=== PATIENT | female | born 1970 | race Caucasian/White ===

== ENCOUNTER 2017-01-11 00:16 | Emergency (ER) | payer BC ==
[~2017-01-11] VITALS: Ht 157.5 cm; Wt 122.5 kg
[~2017-01-11 00:16] MED LIST: HCTZ12.5T PO; ONDA-42 SL; OSLT75CRX PO; PRM25T PO
--- OUTSIDE RECORDS SUMMARY | 2017-01-11 00:21 | XMS REPORT ---
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 Info Not Available Non Drug Allergy Problems Problem Type Condition Code Onset Dates Condition Status Assessment Dental caries K02.9 Active Problem Unspecified essential hypertension 401.9 Active Medications Medication Code System Code Instructions Start Date End Date Status Dosage Hydrochlorothiazide [facility] [address]-09 25 mg Mar 21, 2013 1 tablet by Oral route 1 time per day Procedures Procedure Coding System Code Date EXTRAC ERUPTED TOOTH/EXPOSED ROOT CPT-4 D7140 Oct 22, 2015 Vital Signs Date/Time: Oct 22, 2015 Blood Pressure Diastolic 94 mmHg Blood Pressure Systolic 142 mmHg Results No Known Results Summary Purpose eClinicalWorks Submission
--- OUTSIDE RECORDS SUMMARY | 2017-01-11 00:22 | XMS REPORT ---
Author Author AILYN GONZALES eClinicalWorks Address Unknown Phone Unavailable Care Team Providers Care Orthotic/Prosthetic Clinician Name Role Phone AILYN GONZALES CP Unavailable Allergies, Adverse Reactions, Alerts Substance Reaction Event Type N.K.D.A. Info Not Available Non Drug Allergy Problems Problem Type Condition Code Onset Dates Condition Status Assessment Dental examination Z01.20 Active Problem Unspecified essential hypertension 401.9 Active Medications Medication Code System Code Instructions Start Date End Date Status Dosage Amoxicillin [facility] [address]-76 500 MG Orally every 8 hrs 1 tablet Procedures Procedure Coding System Code Date INTRAORL-PERIAPICAL 1 FILM 82869 CPT-4 D0220 October 02, 2015 LTD ORAL EVALUATION - PROBLEM FOCUS CPT-4 D0140 October 02, 2015 Vital Signs Date/Time: October 02, 2015 Blood Pressure Diastolic 95 mmHg Blood Pressure Systolic 159 mmHg Height 62 in Results No Known Results Summary Purpose eClinicalWorks Submission
--- OUTSIDE RECORDS SUMMARY | 2017-01-11 00:22 | XMS REPORT | Continuity of Care Document ---
Author Author [facility] [place] [facility] Address Unknown Phone Unavailable Allergies Active Description Code Type Severity Reaction Onset Reported/Identified Relationship to Patient Clinical Status Yes No Known Drug Allergies [id number] Drug Allergy Unknown N/ A 2011 Medications Problems Date Dx Coded Attending Type Code Diagnosis Diagnosed By 09/25/2012 SULMA AGUILAR DDS 401.9 UNSPECIFIED ESSENTIAL HYPERTENSION 08/18/2015 CECI MOSQUEDA DO Ot M79.89 OTHER SPECIFIED SOFT TISSUE DISORDERS 08/28/2015 CECI MOSQUEDA DO Ot M79.89 OTHER SPECIFIED SOFT TISSUE DISORDERS 09/15/2015 CECI MOSQUEDA DO Ot M79.89 OTHER SPECIFIED SOFT TISSUE DISORDERS 01/26/2016 CECI MOSQUEDA DO Ot N63 UNSPECIFIED LUMP IN BREAST 02/03/2016 CECI MOSQUEDA DO Ot N63 UNSPECIFIED LUMP IN BREAST Procedures Results Encounters ACCT No. Visit Date/Time Discharge Status Pt. Type Provider Facility Loc./Unit Complaint [id number] 10/30/2012 09:43:00 10/30/2012 23: 59:59 CLS Outpatient SULMA AGUILAR DDS [id number] 01/22/2016 07:25:00 2015 23:59:59 CLS Outpatient CECI MOSQUEDA DO [facility] RT BREAST LUMP [id number] 08/14/2015 12:34:00 2015 23:59:59 CLS Outpatient CECI MOSQUEDA DO [facility] [id number] 03/23/2013 19:19:00 2013 21:05:00 DIS Emergency
[2017-01-11] MEDS ORDERED: FURO20TA4 (00:29)
[2017-01-11] MEDS ORDERED: LISI10TA2 (00:29)
[2017-01-11] MEDS ORDERED: hydrOXYzine (VISTARIL) 25 MG CAP PO ONE (00:30)
[2017-01-11] MEDS ORDERED: ALPRAZolam 0.25 MG (XANAX) TAB PO ONE (00:30)
--- NOTE | 2017-01-11 00:35 | ED Psychosocial ---
General Chief Complaint: Psych/Social Disorder Stated Complaint: PALPITATIONS,SOB Source: patient, family Exam Limitations: no limitations History of Present Illness Time seen by provider: 00:19 Initial Comments Here with report of shortness of air and palpitations. This is been going on tonight. Her mother approximately 5 hours ago after a yan with cancer. She admits that she is anxious related to that. States that she was short of air when lying down and also felt palpitations. States that she couldn't sleep. Patient is tearful on exam but denies pain or other concerns currently. Timing/Duration: this evening Severity: moderate Associated Symptoms: anxiety, impaired concentration Allergies and Home Medications Allergies Coded Allergies: No Known Drug Allergies (Unverified , 02/01/11) Home Medications Furosemide 20 Mg Tablet, (Reported) Lisinopril 10 Mg Tablet, (Reported) Constitutional: see HPI, No chills, No fever Respiratory: see HPI, No cough, No wheezing Cardiovascular: No chest pain, palpitations Gastrointestinal: No abdominal pain, nausea, No vomiting Genitourinary: no symptoms reported Psychiatric/Neurological: See HPI, Anxiety Past Hittvxl-Pjrtmv-Ihbral Hx Patient Social History Alcohol Use: Denies Use Recreational Drug Use: No Smoking Status: Never a Smoker Recent Foreign Travel: No Contact w/Someone Who Travel: No Surgeries History of Surgeries: Yes Surgeries: Tubal Ligation Respiratory History of Respiratory Disorde: No Cardiovascular History of Cardiac Disorders: Yes Cardiac Disorders: Hypertension Reproductive System Hx Reproductive Disorders: No Sexually Transmitted Disease: No 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 Reviewed Nursing Assessment Reviewed/Agree w Nursing PMH: Yes Family Medical History Significant Family History: Cancer Physical Exam Vital Signs Vital Sign - Last 12Hours 01/11/17 00:29 Temp 98.1 Pulse 101 Resp 13 B/P (MAP) 149/89 Pulse Ox 94 O2 Delivery Room Air Capillary Refill : General Appearance: WD/WN, no apparent distress, obese HEENT: PERRL/EOMI, pharynx normal Neck: full range of motion, supple Respiratory: lungs clear, normal breath sounds Cardiovascular: regular rate, rhythm, no murmur, tachycardia (100-102 on the monitor.) Gastrointestinal: non tender, soft Neurologic/Psychiatric: alert, oriented x 3 Appearance/Memory: appropriate appearance, appropriate insight, neat, other ( tearful when talking about her mother) Behavior/Eye Contact: cooperative, good eye contact, normal speech Thoughts/Hallucinations: normal thought pattern Skin: normal color, warm/dry Progress/Results/Core Measures Results/Orders My Orders Orders - NORMA FRANCOIS MD Alprazolam Tablet (Xanax Tablet) (01/11/17 00:30) Hydroxyzine Oral (Vistaril Capsule) (01/11/17 00:30) Medications Given in ED Current Medications Medications Dose Ordered Sig/Paulo Route Start Time Stop Time Status Last Admin Dose Admin Alprazolam 0.25 mg ONCE ONCE PO 01/11/17 00:30 01/11/17 00:31 DC 01/11/17 00:36 0.25 MG Hydroxyzine Pamoate 25 mg ONCE ONCE PO 01/11/17 00:30 01/11/17 00:31 DC 01/11/17 00:36 25 MG Vital Signs/I&O Vital Sign - Last 12Hours 01/11/17 00:29 Temp 98.1 Pulse 101 Resp 13 B/P (MAP) 149/89 Pulse Ox 94 O2 Delivery Room Air Progress Note : Progress Note Seen and evaluated. I did discuss prevent with the patient. She was appreciative of the understanding. Hydroxyzine 25 mg by mouth and Xanax 0.25 mg by mouth given. We will watch the patient for improvement for a little while in the ER. Heart rate was noted to decrease to the mid 90s with talking to her. Monitor patient. 0100: Patient states she feels much better. Heart rate down to the low 90s. Denies any breathing problems. She does have good family support and her younger brother is a preacher in [place]. She states that she'll be a little talk with her family in the morning. Discharged home with return precautions. Patient verbalize understanding instructions and agreement with plan. Departure Impression Impression: Primary Impression: Bereavement reaction Additional Impression: Anxiety Disposition: 01 HOME, SELF-CARE Condition: Improved Departure-Patient Inst. Decision time for Depature: 01:03 Referrals: CECI MOSQUEDA DO (PCP/Family) Primary Care Physician Patient Instructions: Anxiety, Adult (DC), Dealing With , Adult Add. Discharge Instructions: All discharge instructions reviewed with patient and/or family. Voiced understanding. Follow-up with your in one to 2 days for recheck and further evaluation as needed. Return for any worsening, weakness, breathing problems, chest pain or other concerns as needed. NORMA FRANCOIS MD Jan 11, 2017 00:35
[2017-01-11 01:06] VITALS: BP 134/79
== END 2017-01-11 01:06 | disposition home or self-care (01) ==
LOC: EDUNIT# 00:16 → ER 00:18
DX: F41.9 Anxiety disorder, unspecified (principal); I10 Essential (primary) hypertension; Z98.51 Tubal ligation status
CPT/HCPCS: 93041

== ENCOUNTER → 2017-04-07 | Outpatient (CLI) | payer SELFPAY ==
[~2017-04-07] MED LIST changes: +FURO20TA4; +LISI10TA2
--- NOTE | 2017-04-07 13:00 | Diagnostic Imaging Report ---
PROCEDURE: US right lower extremity venous. TECHNIQUE: Multiple real-time grayscale images were obtained over the right lower extremity in various projections. Additional duplex Doppler and color Doppler images were also obtained. INDICATION: Right leg swelling. FINDINGS: There is no evidence of a right lower extremity DVT. The right lower extremity venous system demonstrates normal compressibility with normal response to augmentation and Valsalva. No soft tissue fluid collections are identified. IMPRESSION: No evidence of right lower extremity DVT. Dictated by: Dictated on workstation # [id number]
== END ==
LOC: RAD 12:12
PROVIDERS: ATTEND Family Medicine
DX: M79.89 Other specified soft tissue disorders (principal)

== ENCOUNTER 2017-09-25 09:50 | Emergency (ER) | payer BC, OTHER ==
[~2017-09-25] VITALS: Ht 157.5 cm; Wt 49.0 kg
[2017-09-25] MEDS ORDERED: TETANUS,DIPTH,PERTUSS P/F (BOOSTRIX) 0.5 ML VIAL IM ONE (10:15)
--- NOTE | 2017-09-25 10:25 | ED Upper Extremity ---
General Chief Complaint: Upper Extremity Stated Complaint: RIGHT RING FINGER INJURY Nursing Triage Note: AMBULATED TO ROOM 10 WITH WHAT SHE SAYS IS AN OPEN FRACTURE TO HER RIGHT RING FINGER. STATES SHE GOT IT CAUGHT IN A DOOR WINDOW. WAS SENT HERE FROM URGENT CARE. Nursing Sepsis Screen: No Definite Risk Source: patient, spouse Exam Limitations: no limitations History of Present Illness Date Seen by Provider: Sep 25, 2017 Time Seen by Provider: 10:14 Initial Comments Patient presents to ER by private conveyance from the urgent care center where she was seen prior to this with a chief complaint she actually rolled her ring finger on her right hand up in the window. It broke the bone according to the urgent care nurse practitioner that was exposed to air so she could not sew it up. She did a ring block on that digit but the patient says is starting to wear off. She's not had anything else for pain. She says she's not had a tetanus shot for over 5 years. Allergies and Home Medications Allergies Coded Allergies: No Known Drug Allergies (Unverified , 02/01/11) Patient Home Medication List Home Medication List Reviewed: Yes Constitutional: No chills, No diaphoresis, No fever, No malaise EENTM: No ear discharge, No ear pain Respiratory: No cough, No short of breath Cardiovascular: No chest pain, No edema Gastrointestinal: No abdominal pain, No constipation, No diarrhea, No nausea Genitourinary: No discharge, No dysuria : No Musculoskeletal: No back pain, No joint pain Skin: No pruritus, No rash Psychiatric/Neurological: Denies Headache, Denies Numbness Past Sqsbhts-Ppymcz-Fcrxgh Hx Patient Social History Alcohol Use: Denies Use Recreational Drug Use: No Smoking Status: Never a Smoker 2nd Hand Smoke Exposure: No Recent Foreign Travel: No Contact w/Someone Who Travel: No Recent Infectious Disease Expo: No Recent Hopitalizations: No Immunizations Up To Date Tetanus Booster (TDap): Unknown Seasonal Allergies Seasonal Allergies: No Past Medical History Surgeries: No Tubal Ligation Respiratory: No Cardiac: Yes Hypertension Neurological: No Reproductive Disorders: No 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 Sexually Transmitted Disease: No Genitourinary: No Gastrointestinal: No Musculoskeletal: No Endocrine: No HEENT: No Cancer: No Psychosocial: No Integumentary: No Blood Disorders: No Family Medical History Cancer Physical Exam Vital Signs Vital Signs - First Documented 09/25/17 09:59 Temp 98.0 Pulse 108 Resp 16 B/P (MAP) 200/108 (138) Pulse Ox 97 O2 Delivery Room Air Capillary Refill : Less Than 3 Seconds Height, Weight, BMI Height: 5', 2.00" Weight: 108lbs oz, 48.974357tl Method:Stated ,49.38BMI General Appearance: WD/WN, no apparent distress HEENT: PERRL/EOMI, pharynx normal Neck: non-tender, full range of motion, normal inspection Cardiovascular: normal peripheral pulses, regular rate, rhythm Respiratory: chest non-tender, no respiratory distress, no accessory muscle use Wrist: Yes normal inspection, Yes non-tender, Yes no evidence of injury, Yes normal ROM Hand: nail injury (half her nail has been removed and she has some angulation and deformity of her distal phalanx of her ring finger on the right hand. Bone is visible and palpable.) Neurologic/Tendon: normal sensation, normal motor functions, normal tendon functions, responds to pain, no evidence tendon injury Neurologic/Psychiatric: no motor/sensory deficits, alert, normal mood/affect, oriented x 3 Skin: normal color, warm/dry Progress/Results/Core Measures Results/Orders My Orders Orders - WENDY,MARIO J Dipht,Pertuss(Acell),Tet Adult (Boostrix (09/25/17 10:15) Vital Signs/I&O 09/25/17 09:59 Temp 98.0 Pulse 108 Resp 16 B/P (MAP) 200/108 (138) Pulse Ox 97 O2 Delivery Room Air Blood Pressure Mean: 138 Progress Progress Note : Time: 11:05 Progress Note We did a digital ring block with 1% lidocaine without epinephrine and then cleaned the wound thoroughly with chlorhexidine soap water. Diagnostic Imaging Diagonstic Imaging: Xray Plain Films/CT/US/NM/MRI: hand (r) Comments Reviewed the physical plain film and demonstrates a ring finger distal phalanx fracture that is mildly angulated, displaced about 2 mm. Open. Consults : Consulting Physician: GRAY AMOR MD Consults Notes He recommends that we clean the wound thoroughly and have the patient follow up today or tomorrow with Dr. LOMELI. He would wrap the wound and Xeroform and gauze. Departure Impression Primary Impression: Fracture of phalanx of hand Qualified Codes: S62.609B - Fracture of unspecified phalanx of unspecified finger, initial encounter for open fracture Disposition: 01 HOME, SELF-CARE Condition: Stable Departure-Patient Inst. Decision time for Depature: 11:07 Referrals: CECI MOSQUEDA DO (PCP/Family) Primary Care Physician CHRIS LOMELI DO Patient Instructions: Finger Fracture (DC) Add. Discharge Instructions: Call Dr. LOMELI and get an appointment for today or tomorrow for your finger. Keep the wound dressed, clean and dry. 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 If you have pain you can use ibuprofen 800 mg every 8 hours or one to 2 tablets of hydrocodone every 6 hours as needed. All discharge instructions reviewed with patient and/or family. Voiced understanding. Scripts Sulfamethoxazole/Trimethoprim (Bactrim Ds Tablet) 1 Each Tablet 1 EACH PO BID for 5 Days, #10 TAB 0 Refills Prov: MARIO NGUYEN 09/25/17 Hydrocodone Bit/Acetaminophen (Hydrocodone/Acetaminophen 5/325mg Tablet) 1 Tab Tab 1-2 EACH PO Q6H PRN for BREAKTHROUGH PAIN, #15 TAB 0 Refills Prov: MARIO NGUYEN 09/25/17 Copy Copies To 1: CECI MOSQUEDA DO; CHRIS LOMELI TITUS J Sep 25, 2017 10:25
[2017-09-25] MEDS ORDERED: ACHD5005 PO (11:08)
[2017-09-25] MEDS ORDERED: SULF1TAB35 PO (11:08)
[2017-09-25] MEDS ORDERED: ACETAMINOPHEN 500 MG TAB (TYLENOL) ONE (11:10)
[2017-09-25 11:24] VITALS: BP 187/98
[2017-09-25] MEDS ORDERED: ACETAMINOPHEN 500 MG TAB (TYLENOL) PO ONE (11:30)
[2017-09-25] MEDS ORDERED: TRIM/SULFAMETH 160/800 (SEPTRA DS) TAB PO ONE (11:30)
== END 2017-09-25 11:24 | disposition home or self-care (01) ==
LOC: EDUNIT# 09:50 → ER 09:52
DX: S62.634B Displaced fracture of distal phalanx of right ring finger, initial encounter for open fracture (principal); I10 Essential (primary) hypertension; W23.0XXA Caught, crushed, jammed, or pinched between moving objects, initial encounter; Z98.51 Tubal ligation status
CPT/HCPCS: 90471; 90715

== ENCOUNTER → 2019-09-23 | Outpatient (CLI) | payer OTHER ==
[~2019-09-23] MED LIST changes: +ACHD5005 PO; +SULF1TAB35 PO
--- NOTE | 2019-09-23 09:32 | Diagnostic Imaging Report ---
Indication: Low back pain Lumbar spine AP and lateral views of the lumbar spine shows mild spondylosis deformans with small osteophytes forming at the anterior margins of the vertebral body endplates. Alignment is normal. There are no compression fractures. IMPRESSION: Mild spondylosis deformans. No acute abnormality seen. Dictated by: Dictated on workstation # [id number]
--- NOTE | 2019-09-23 09:38 | Diagnostic Imaging Report ---
EXAMINATION: Right knee radiographs, 2 views. COMPARISON: None. HISTORY: 49-year-old female, right knee pain. FINDINGS: There is no identified acute fracture. There is no knee joint effusion. The joint spaces are well preserved. There is no osteophyte formation. There is no radiopaque foreign body. IMPRESSION: 1. Unremarkable radiographs of the right knee. Dictated by: Dictated on workstation # [id number]
== END ==
LOC: RAD 08:58
PROVIDERS: ATTEND Family Medicine
DX: Z02.71 Encounter for disability determination (principal); M47.816 Spondylosis without myelopathy or radiculopathy, lumbar region; M25.561 Pain in right knee
CPT/HCPCS: 72100; 73560

== ENCOUNTER → 2020-04-01 | Outpatient (CLI) | payer BC ==
--- NOTE | 2020-04-01 18:03 | Diagnostic Imaging Report ---
INDICATION: Screening. At this time there are no current complaints. EXAMINATION: Digital mammogram bilateral screening. 3D tomographic images were obtained and reviewed. COMPARISON: This study was compared to the prior exam of 01/22/2016. FINDINGS: The previous exam of 01/22/2016 did note a prominent asymmetry involving the upper outer aspect of the right breast. That finding was felt to be secondary to hematoma formation as the patient had suffered trauma to the right breast. On this exam that asymmetric density is much smaller. This now measures 1.6 x 7.1 cm. I suspect this finding is secondary to scar formation. The tomographic images do suggest architectural distortion in this region. The architectural distortion is probably related to the prior trauma. The possibility of an underlying malignant process should still be considered, however. I would recommend that a compression view of this area be obtained in the CC and MLO projections for further study. A true lateral view should be performed as well. Ultrasound of this portion of the right breast would also be recommended. There are several new micro and macro calcifications in this region. These calcifications have a generally benign appearance. The breasts are predominantly fatty otherwise. When compared to the previous study, there has been no significant change. There is no primary or secondary sign of malignancy noted. IMPRESSION: 1. The prominent asymmetric density in the upper outer aspect of the right breast, seen previously, has diminished in size although there is still some residual asymmetry present. This finding may be secondary to scar formation alone. The possibility that there is an underlying malignant process should still be considered. Additional mammographic imaging and ultrasound would be recommended for further study, however. 2. There is no evidence for malignancy involving the left breast. ACR BI-RADS Category 0: Incomplete. (Needs additional imaging evaluation). Result letter will be mailed to the patient. Note: At least 10% of breast cancer is not imaged by mammography. Dictated by: Dictated on workstation # [id number]
== END ==
LOC: RAD 08:00
PROVIDERS: ATTEND Nurse Practitioner Family
DX: Z12.31 Encounter for screening mammogram for malignant neoplasm of breast (principal); R92.8 Other abnormal and inconclusive findings on diagnostic imaging of breast
CPT/HCPCS: 77063; 77067

== ENCOUNTER → 2020-05-21 | Outpatient (CLI) | payer BC ==
[~2020-05-21] MED LIST changes: -LISI10TA2; +LISI10TA25
--- NOTE | 2020-05-21 15:31 | Diagnostic Imaging Report ---
INDICATION: Abnormal mammogram. CORRELATION is made with diagnostic mammogram earlier same day and screening mammogram from 04/01/2020. Comparison is also made with a prior ultrasound from 01/22/2016. Sonographic interrogation of the upper right breast demonstrates an area of hypoechogenicity at the 11-1 o'clock location measuring 5.2 x 1.5 x 1.6 cm. This correlates to the density noted mammographically. No internal vascularity is seen. The patient reportedly sustained right breast trauma previously, this may represent an area of scar formation but continued close follow-up is recommended. This is similar to the ultrasound from 2016. IMPRESSION: Large area of hypoechogenicity at the 11-1 o'clock location right breast corresponding to the mammographic density. This may represent posttraumatic changes. However, close follow-up is recommended. A follow-up right mammogram and right breast ultrasound in 6 months is recommended to show continued stability. BI-RADS Category 3 ACR BI-RADS Category 3: Probably benign findings. Result letter will be mailed to the patient. Note: At least 10% of breast cancer is not imaged by mammography. Dictated by: Dictated on workstation # [id number]
--- NOTE | 2020-05-22 08:53 | Diagnostic Imaging Report ---
Indication: Right breast density. Patient presents for additional views. Correlation is made with prior screening mammogram from 04/01/2020 and 01/22/2016. Unilateral right 2-D and 3-D diagnostic mammography was performed including spot compression CC and ML views as well as conventional 90 degrees lateral views. Persistent linear density in the upper outer right breast at mid to posterior depth is noted. There are some associated benign calcifications. Reportedly patient has had prior trauma to the breast and this could represent residual trauma. Further evaluation with ultrasound is recommended. No other abnormalities are seen. IMPRESSION: BI-RADS 0 Persistent density in the upper outer right breast, as described. Further evaluation with ultrasound is recommended and will be performed today. ACR BI-RADS Category 0: Incomplete. (Needs additional imaging evaluation). Result letter will be mailed to the patient. Note: At least 10% of breast cancer is not imaged by mammography. Dictated by: Dictated on workstation # [id number]
== END ==
LOC: RAD 14:01
PROVIDERS: ATTEND Nurse Practitioner Family
DX: R92.2 Inconclusive mammogram (principal)
CPT/HCPCS: 76642; 77065; G0279

== ENCOUNTER 2022-09-06 16:05 | Emergency (ER) | payer OTHER, BC ==
[~2022-09-06] VITALS: Ht 157 cm; Wt 110.6 kg
[~2022-09-06 16:05] MED LIST changes: -SULF1TAB35 PO; +SULF1TAB38 PO
[2022-09-06] MEDS ORDERED: TETANUS,DIPTH,PERTUSS P/F (BOOSTRIX) 0.5 ML VIAL IM ONE (16:45)
--- NOTE | 2022-09-06 16:51 | ED Head Injury ---
General Chief Complaint: Head/Cervical Problems Stated Complaint: FALL|HIT HEAD Nursing Triage Note: PT PRESENTS TO ED VIA POV FROM WORK WITH COMPLAINTS OF TRIPPING OVER SOMETHING AT WORK AND HITTING HEAD ONTO THE TILE FLOOR. PT REPORTS NO LOC. SWELLING/LAC NOTED ABOVE L BROW. Source: patient Exam Limitations: no limitations (LEANN PURCELL) History of Present Illness Date Seen by Provider: Sep 06, 2022 Time Seen by Provider: 16:46 Initial Comments Is a 52-year-old female who presents ED with left-sided head injury, left hand pain and right knee pain. Patient fell around 240 today. She works at [employer]. She states she was carrying trays when she slipped and tripped on the tray quinn. She fell forward landing on her left magana hand and right knee and also hitting the left side of her forhead resulting in small contusion and small amount of bleeding from a wound. She denies of any cervical neck pain.. She is not up-to-date on her tetanus. she states her glasses did break. Patient denied loss of consciousness or blood thinners. She had a mild headache after the fall. Mild dizziness without nausea, vomiting, visual changes, unilateral muscle weakness or sensory changes, neck pain, middle lower back pain, eye pain, chest pain, sob. Denies taking anything for pain. (LEANN PURCELL) Allergies and Home Medications Allergies Coded Allergies: No Known Drug Allergies (Unverified , 02/01/11) Patient Home Medication List Home Medication List Reviewed: Yes (LEANN PURCELL) Furosemide (Furosemide) 20 Mg Tablet, (Reported) Entered as Reported by: KARLIE FREEMAN on 01/11/1728 Hydrocodone Bit/Acetaminophen (Lortab 5 Mg Tablet) 1 Tab Tab, 1-2 EACH PO Q6H PRN for BREAKTHROUGH PAIN Prescribed by: MARIO NGUYEN on 09/25/171107 Lisinopril (Lisinopril) 10 Mg Tablet, (Reported) Entered as Reported by: KARLIE FREEMAN on 01/11/1728 Sulfamethoxazole/Trimethoprim (Bactrim Ds Tablet) 1 Each Tablet, 1 EACH PO BID Prescribed by: MARIO NGUYEN on 09/25/17 1108 Review of Systems Review of Systems Constitutional: No chills, No diaphoresis, No malaise, No weakness Eyes: Denies Blindness, Denies Drainage, Denies Decreased Acuity Respiratory: No cough Cardiovascular: No chest pain Gastrointestinal: No abdominal pain, No diarrhea, No nausea, No vomiting Genitourinary: No decreased output, No discharge, No dysuria, No frequency Musculoskeletal: No back pain; joint pain, joint swelling, muscle pain Skin: No change in color, No change in hair/nails Psychiatric/Neurological: Denies Anxiety, Denies Depressed (LEANN PURCELL) All Other Systems Reviewed Negative Unless Noted: Yes (LEANN PURCELL) Past Auccsdq-Hailsr-Sixjuu Hx Patient Social History Tobacco Use?: No Substance use?: No Alcohol Use?: No Pt feels they are or have been: No (LEANN PURCELL) Immunizations Up To Date Tetanus Booster (TDap): Unknown (LEANN PURCELL) Seasonal Allergies Seasonal Allergies: No (LEANN PURCELL) Past Medical History Surgery/Hospitalization HX: DM, HTN, HIGH CHOL Surgeries: No Tubal Ligation Respiratory: No Cardiac: Yes Hypertension Neurological: No Reproductive Disorders: No 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 oz. [id number]; 44.00 BMI Method:Stated General Appearance: WD/WN, no apparent distress HEENT: PERRL/EOMI, normal ENT inspection, TMs normal, pharynx normal, other (Left forehead swelling with small puncture. No bleeding. Contusion noted. Bilateral TMs clear) Neck: non-tender, full range of motion, supple Cardiovascular: regular rate, rhythm, no edema, no gallop, no JVD Respiratory: chest non-tender, lungs clear, normal breath sounds, no respiratory distress, no accessory muscle use Gastrointestinal: normal bowel sounds, non tender, soft, no organomegaly Back: normal inspection, no CVA tenderness, no vertebral tenderness Extremities: other (Left palmar proximal thumb tenderness. No swelling, bruising. Pain with movement. Right anterior knee tenderness. No crepitus. Normal active range of motion. No swelling or bruising.) Psychiatric: alert, oriented x 3 Crainal Nerves: normal hearing, normal speech, PERRL Coordination/Gait: normal finger to nose, normal gait Motor/Sensory: no motor deficit, no sensory deficit Skin: warm/dry, other (Small contusion left forehead.) (LEANN PURCELL) [place] Coma Score Best Eye Response: (4) Open Spontaneously Best Verbal Response: (5) Oriented Best Motor Response: (6) Obeys Commands [place] Total: 15 (LEANN PURCELL) Progress/Results/Core Measures Results/Orders Blood Pressure Mean: 98 Departure Communication (PCP) Nontrauma activation. Mechanical fall. GCS 15. Alert and orient x3. Differential diagnosis left forehead contusion, intracranial hemorrhage, cranium fracture, left hand fracture, left hand sprain, right knee fracture, right knee sprain. Patient hit the left side of her forehead. She has no maxilla or mandible tenderness. No periorbital tenderness. Extract movements intact. No pain with eye movement. Glasses broke. No loss of consciousness or on blood thinners. She did land on her right knee and left hand. Patient had tenderness to left proximal palmar thumb, right anterior knee and a small contusion to left forehead. She did have some small amount of bleeding after the fall she has a small puncture patient was given tetanus. Bleeding controlled. No cervical, thoracic or lumbar midline tenderness. No focal neural deficit. CT scan of the head was negative for acute intracranial abnormality. Contusion noted. No retrobulbar hematoma. Since she has no periorbital mandible or maxilla tenderness imaging of the face was held. X-ray of the left hand and right knee were negative for acute fracture. She refused anything for pain. Recommend anti-inflammatories at home. No strong evidence of a concussion at this time. If continued headache, nausea or lightheadedness recommend rest at home avoid work or strenuous activities and reevaluation with PCP in 2 or 3 days for reevaluation. Provided work note. Return precaution were discussed. (LEANN PURCELL) Impression Primary Impression: Head injury Additional Impressions: Hand pain Knee pain Disposition: 01 HOME, SELF-CARE Condition: Stable Departure-Patient Inst. Decision time for Depature: 17:21 (LEANN PURCELL) [place]: [facility] [place] Primary Care Physician PRIYANK BERTRAND MD Patient Instructions: CT Scan, Head, Hand Pain, Knee Pain Add. Discharge Instructions: Recommend rest. If continue headache recommend anti-inflammatories or ibuprofen. Follow-up your PCP 2 to 3 days for reevaluation. if asymptomatic may return back to work. If worsening symptoms return back to ED. All discharge instructions reviewed with patient and/or family. Voiced understanding. Work/School Note: Work Release Form Date Seen in the Emergency Department: Sep 06, 2022 Return to Work: Sep 08, 2022 ATTENDING PHYSICIAN NOTE: I was physically present in the Emergency Department during the evaluation and care of this patient as attending physician, and I was available for consultation and assistance. I did not personally interview or examine this patient, nor was I otherwise directly involved in the care or decision making for this patient. (PRESTON LAZAR MD) LEANN PURCELL Sep 06, 2022 16:51 PRESTON LAZAR MD Sep 07, 2022 08:45
--- NOTE | 2022-09-06 17:08 | Diagnostic Imaging Report ---
INDICATION: knee pain TECHNIQUE: 3 views of the right knee CORRELATION STUDY: None FINDINGS: Mild joint space during medially minimal marginal osteophyte formation. The articular surfaces are smooth. There is no acute bony abnormality. Minimal degenerative changes at the patella. Soft tissue tissues unremarkable. IMPRESSION: 1. Negative for acute bony abnormality of the knee. Mild multicompartment degenerative change. Dictated by: Dictated on workstation # [id number]
--- NOTE | 2022-09-06 17:10 | Diagnostic Imaging Report ---
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 Patient has swelling and laceration above left eyebrow. Exam: Axial CT scan of the brain without IV contrast with coronal and sagittal reformatted images. Auto Exposure Controls were utilized during the CT exam to meet ALARA standards for radiation dose reduction. Comparison: None Findings: There is no evidence of acute cerebral infarct, intracranial hemorrhage, or gross mass effect. The brain parenchymal volume appears appropriate for patient's age. There is normal garcia-white matter distinction. There is no significant midline shift or herniation. There is no evidence of hydrocephalus. The basal cisterns are unremarkable. There is a small area of extracranial soft tissue swelling involving the left forehead/left periorbital region. All the swelling is preseptal. There is no retrobulbar hematoma. There is no skull fracture. Otherwise, the skull, extracranial soft tissue, and orbits are unremarkable. There is mild mucosal thickening involving both maxillary sinuses and sphenoid sinus. Temporal bones show no significant abnormality. Impression: 1: There is no evidence of acute intracranial process. 2: There is small area of extracranial soft tissue swelling involving the left forehead/left periorbital region. There is no skull fracture. There is no retrobulbar hematoma. Dictated by: Dictated on workstation # [id number]
--- NOTE | 2022-09-06 17:10 | Diagnostic Imaging Report ---
EXAMINATION: Left hand 3 views HISTORY: Thumb pain. COMPARISON: None available. FINDINGS: Alignment is normal. No fracture is seen. Joint spaces are normal. IMPRESSION: 1. No fracture. Dictated by: Dictated on workstation # [id number]
[2022-09-06 17:45] VITALS: BP 135/73
== END 2022-09-06 17:45 | disposition home or self-care (01) ==
LOC: EDUNIT# 16:05 → ER 16:07
DX: S09.90XA Unspecified injury of head, initial encounter (principal); S00.83XA Contusion of other part of head, initial encounter; M25.561 Pain in right knee; M79.645 Pain in left finger(s); W01.198A Fall on same level from slipping, tripping and stumbling with subsequent striking against other object, initial encounter; Y92.59 Other trade areas as the place of occurrence of the external cause; Y99.0 Civilian activity done for income or pay
CPT/HCPCS: 70450; 73130; 73562; 90715